=== PATIENT | male | born 1975 | race Caucasian/White ===

== ENCOUNTER 2021-03-27 14:59 | Inpatient (IN) | payer OTHER ==
[~2021-03-27] VITALS: Ht 185.4 cm; Wt 89.4 kg
[~2021-03-27 14:59] MED LIST: NOHOMEMEDICATIONS; PEPCID40 MG PO
[2021-03-27 16:55] LABS: ABSOLUTE NEUTROPHILS 3.5 thou/uL (1.4-8.2); BASOPHILS 2.1 % (0.0-2.0); EOSINOPHILS 0.2 % (0.0-3.0); HEMATOCRIT 43.8 % (42.0-52.0); HEMOGLOBIN 14.3 gm/dL (14.0-18.0); LYMPHOCYTES 17.8 % (24.0-44.0); MCH 27.8 pg (26.0-34.0); MCHC 32.7 g/dL (28.0-37.0); MONOCYTES 6.6 % (1.0-8.0); POLYS 73.3 % (36.0-66.0); RBC 5.15 mil/uL (4.50-6.00); WBC 4.8 thou/uL (4.0-11.0)
[2021-03-27 17:00] LABS: CALCIUM 7.9 mg/dL (8.5-10.1); CREATININE 0.7 mg/dL (0.7-1.3); POTASSIUM 3.6 mmol/L (3.5-5.1)
[2021-03-27 17:06] LABS: TOTAL BILIRUBIN 1.3 mg/dL (0.2-1.0); TOTAL PROTEIN 7.5 g/dL (6.4-8.2)
[2021-03-27 17:23] VITALS: BP 147/107
[2021-03-27 17:36] LABS: ANISOCYTOSIS 1+; PLATELET COUNT 66 thou/uL (150-400)
--- NOTE | 2021-03-27 18:18 | NUR ---
Pt direct admit. Pt a&ox4. C/o and pain. Prn pain medication adminsitered. IV placed. Pt states he drinks regularly at home (4-5 shots of vodka per day). Umbilical hernia painful to touch. Family at bedside. Admission completed. Call light within reach. Will continue to monitor.
[2021-03-27 20:08] VITALS: BP 153/106
[2021-03-27 20:26] LABS: ALBUMIN 2.6 g/dL (3.4-5.0)
--- NOTE | 2021-03-28 03:18 | NUR ---
ASSUMED PT CARE AT 1900.PT OU OF THE UNIT FOR A CT SCAN.AGRICULTURAL RESEARCHER ON DUTY SAW PT AT ,ORDERS NOTED AND CARRIED OUT SEE AUG.PT C/O PAIN,N/V MOST OF THE SHIFT.PT HAS HAD THREE EPISODES OF N/V.PT STATED THAT HE HAD A NOSE BLEED WITH THE LAST EMESIS.PT CONT ON IVF CURT WELL.NPO SINCE SHIFT STARTED.ABD DISTENDED AND PAINFUL TO TOUCH.UP ADLIB IN THE ROOM WITH A STEADY GAIT.PT ABLE TO MAKE HIS NEEDS KNOWN.CALL LIGHT WITHIN REACH.
[2021-03-28 03:44] VITALS: BP 171/116
[2021-03-28 07:00] LABS: HEMATOCRIT 42.3 % (42.0-52.0); HEMOGLOBIN 13.7 gm/dL (14.0-18.0); MCH 27.9 pg (26.0-34.0); MCHC 32.5 g/dL (28.0-37.0); RBC 4.92 mil/uL (4.50-6.00); RDW 18.6 % (10.5-14.5); WBC 5.1 thou/uL (4.0-11.0)
--- NOTE | 2021-03-28 07:20 | EKG ---
[address] [address] ELECTROCARDIOGRAM REPORT Name: COLTON YATES Room #: 448- ADM IN M.R.#: [id number] Admission: 03/27/21 Attend Phys: Everardo Lee MD Discharge: Date of : 71 Report #: [id number] [facility] Test Date: 2021-03-27 Test Time: 18:01:04 Pat Name: COLTON YATES Department: Room: [facility] Gender: M Band Top Maker: [id number] : 1975 Requested By: Everardo Lee Order Number: [id number] MD: Daron Ramos Measurements Intervals [place] Rate: 114 P: 39 [place]: 164 QRS: 73 QRSD: 93 T: 29 QT: 348 QTc: 480 Interpretive Statements Sinus tachycardia Baseline wander in lead(s) V1 Compared to ECG 12/14/2011 20:17:50 Sinus rhythm no longer present Electronically Signed On 03-28-2021 7:20:31 CDT by Daron Ramos [email or web address] <ELECTRONICALLY SIGNED> By: Daron Ramos MD, [facility] 03/28/21 0720 00 00 Daron Ramos MD, FAC /EPI
[2021-03-28 07:21] LABS: ALBUMIN 2.8 g/dL (3.4-5.0); CREATININE 0.8 mg/dL (0.7-1.3); MAGNESIUM 1.5 mg/dL (1.8-2.4); PHOSPHORUS 3.2 mg/dL (2.5-4.9)
[2021-03-28 08:09] VITALS: BP 147/105
[2021-03-28 09:13] LABS: INR 1.14; PROTIME 12.4 Seconds (10.5-12.1)
[2021-03-28 13:01] LABS: CLARITY CLEAR; COLOR YELLOW; SOURCE ABDOMINAL; TOTAL VOLUME 60 mL
[2021-03-28 13:11] LABS: BF NUCLEATED CELLS 202 /mm3; BF RBC 510 /mm3
[2021-03-28 15:33] LABS: % SATURATION 15 % (20-39); IRON 42 ug/dL (65-175); TIBC 272 ug/dL (250-450)
[2021-03-28 15:42] LABS: BF MACROPHAGE 34 %; BF NEUTROPHILS 5 %
--- NOTE | 2021-03-28 16:15 | NUR ---
PT ASSESSED AT START OF SHIFT. NPO FOR PARACENTESIS AT 1015. TAKING SM AMTS LIQUIDS POST PROCEDURE. ABD SORE AFTERWARD. IV PAIN MED HELPING. IV FLUIDS INFUSING. DR. MARINO IN THIS AM. DR. DIAZ IN THIS AFTERNOON. ORDER TO START PT ON ALCOLHOL PROTOCOL TREMORS NOTED TO BE INCREASING. TRANSFERRED TO CCU AT THIS TIME PER W/C. REPORT GIVEN TO RECEIVING RN.
[2021-03-28 16:50] VITALS: BP 148/100
--- NOTE | 2021-03-28 19:33 | NUR ---
TRANSFER NOTE: pt received to rm 214 from 4S. A&O x4, on RA. Denies any chest pain. CIWA protocol in place & in chart. Pt oriented to floor rules. ST on the montior. Denies any current needs.
[2021-03-28 19:49] VITALS: BP 145/95
[2021-03-28 23:22] VITALS: BP 152/86
--- NOTE | 2021-03-29 00:48 | NUR ---
UPON SHIFT REPORT, PT AT BEDSIDE. UPON SHIFT ASSESSMENT, PT AOX4, REPORTING 4/10 ANXIETY. PT REPORTS 7/10 CHRONIC BACK AND ACUTE ABDOMINAL PAIN, ALONG WITH 2/10 HEADACHE PAIN. ABDOMEN ROUND, FIRM, AND TENDER WITH TOUCH, NO DRAINAGE NOTED TO PARACENTESIS SITE. PT RECEIVING PRN IV DILAUDID Q2HR. PT REPORTS SOB WHILE AT REST. PT REPORTS INCREASED OCCURENCE OF SOB WHEN ANXIOUS AND IN PAIN, NO DESATURATIONS NOTED. 2L O2 VIA NC APPLIED, PT REPORTS RELIEF. ALCOHOL WITHDRAWAL ASSESSMENT SCORED AT 11. PT RECEIVING PRN IV ATIVAN Q2HR/Q4HR WITH PRN PO ATIVAN Q2HR/Q4HR AVAILABLE. PT TOLERATING PO INTAKE OF FLUIDS AND 2GM SODIUM DIET WITHOUT ISSUE, PT REPORTS NAUSEA WITHOUT EMESIS. PT RECEIVING PRN IV ZOFRAN Q4HR. PT AMBULATING INDEPENDENTLY IN ROOM AND TO BATHROOM, VOIDING PER URINAL DUE TO STRICT I/O MONITORING, DARK TARYN URINE NOTED. PT RESTING IN BED THROUGHOUT SHIFT, FREQUENT REPOSITIONING ENCOURAGED, PT NOTED TO SHIFT INDEPENDENTLY. PT ENCOURAGED TO NOTIFY STAFF FOR ALL NEEDS, CALL LIGHT WITHIN REACH, BED ALARM ON, BED LOCKED IN LOWEST POSITION, FREQUENT MONITORING WILL CONTINUE.
[2021-03-29 05:22] VITALS: BP 146/79
[2021-03-29 06:06] LABS: IgG 1980 mg/dL (603-1613)
--- NOTE | 2021-03-29 06:40 | NUR ---
SLEPT PART OF SHIFT. ATIVAN GIVEN PER CIWA SCORES. PAIN MEDICATIONS PRN. WORKING ON GOALS AND PLAN OF CARE FOR NOC. UP AD NEIL IN ROOM. CONTINUE TO BAHMAN GUTIERREZ.
[2021-03-29 07:30] VITALS: BP 120/78
--- NOTE | 2021-03-29 09:06 | NUR ---
Assumed care of pt this AM. Pt oriented x4, sleepy. On RA, denies any chest pain. SR/ ST on the monitor. CIWA protocol in place, assessments as charted. Pt c/o abd & back pain, PRN pain medication given. Will continue to monitor pts status.
[2021-03-29 16:00] VITALS: BP 145/106
[2021-03-29 17:06] LABS: CERULOPLASMIN 21.7 mg/dL (16.0-31.0)
[2021-03-29 19:26] VITALS: BP 148/97
[2021-03-29 23:39] VITALS: BP 144/104
[2021-03-30 03:47] LABS: HEMATOCRIT 40.8 % (42.0-52.0); HEMOGLOBIN 13.2 gm/dL (14.0-18.0); MCH 27.7 pg (26.0-34.0); MCHC 32.4 g/dL (28.0-37.0); MCV 85.6 fL (80.0-100.0); RBC 4.77 mil/uL (4.50-6.00); RDW 18.4 % (10.5-14.5); WBC 4.2 thou/uL (4.0-11.0)
[2021-03-30 03:56] LABS: CALCIUM 8.3 mg/dL (8.5-10.1); CREATININE 0.8 mg/dL (0.7-1.3); POTASSIUM 3.6 mmol/L (3.5-5.1)
[2021-03-30 04:45] VITALS: BP 137/99
[2021-03-30 06:06] LABS: HAV IgM AB (ANTI-HAV IgM) Negative (Negative); HEPATITIS B SURFACE AG Negative (Negative); HEPATITIS C VIRUS AB <0.1 (0.0-0.9)
[2021-03-30 07:20] VITALS: BP 146/100
--- NOTE | 2021-03-30 07:35 | NUR ---
SLEPT PART OF SHIFT. UP AD NEIL IN ROOM. ST 120-130 WHEN UP IN ROOM. PAIN MEDICATIONS GIVEN NEEDED. ATIVAN PER CIWA SCORE. CONTINUE TO ASSES.
[2021-03-30 11:20] VITALS: BP 135/94
[2021-03-30 13:06] LABS: ANA INTERPRETATION Positive (Negative)
[2021-03-30 15:25] VITALS: BP 137/99
[2021-03-30 19:06] VITALS: BP 130/83
--- NOTE | 2021-03-30 19:55 | NUR ---
PT IS AXOX4, SOME ANXIETY. VSS, AFEBRILE, ST ON THE MONITOR. C/O ABDOMINAL PAIN AND ANXIETY, SOME NAUSEA THIS PM. RX PROVIDED WITH SOME RELIEG. PT HAS BEEN UP AD NEIL TO TOILET AND PROMOTE ACTIVITY. C/O SOME DIZZINESS THIS PM. EDUCATED PT ON CALLING OUT PRIOR TO GETTING UP. PT COMMUNICATED UNDERSTANDING. DR OSMAN CONSULTED, DR MARINO CONSULTED. POC IS TO CONTINUE TO DIURESE PT WITH POSS D/C IN AM. FALL PRECAUTIONS IN PLACE. NO CONCERNS AT THIS TIME.
[2021-03-31 03:58] VITALS: BP 108/68
[2021-03-31 04:06] LABS: BODY FLUID ALBUMIN 1.7 g/dL (Not Estab.); BODY FLUID AMYLASE 38 U/L (()); BODY FLUID GLUCOSE 96 mg/dL (()); BODY FLUID LDH 74 IU/L (()); BODY FLUID PROTEIN 3.5 g/dL (())
--- NOTE | 2021-03-31 05:00 | NUR ---
UP AD NEIL IN [place]ILL[place] AND TO BATHROOM NEEDED WITH TELEMETRY SHOWING ST 130'S. RECOVERS QUICKLY AT REST. STATES LESS PAIN THIS SHIFT. HOPES TO BE DISCHARGED TODAY. WORKING ON GOALS AND PLAN OF CARE FOR NOC. CONTINUE TO ASSES.
[2021-03-31 07:15] VITALS: BP 130/89
[2021-03-31 11:30] VITALS: BP 128/96
--- NOTE | 2021-03-31 12:36 | NUR ---
PT IS AXOX4, PLEASANT; HAS NOT C/O PAIN, NAUSEA; ANTICIPATING GOING HOME; VSS, AFEBRILE, SR/ST ON THE MONITOR. PT HAS BEEN UP AD NEIL IN THE ROOM, AWAITING FOR D/C ORDERS. DR DIAZ CONSULTED, DR MARINO CONSULTED. WILL FOLLOW UP WITH MD FOR POC FOR D/C
[2021-03-31 15:25] VITALS: BP 123/97
[2021-03-31] MEDS ORDERED: ALDACTONE50 MG PO (16:06)
[2021-03-31] MEDS ORDERED: LASIX 20 MG TAB20 MG PO (16:07)
[2021-03-31] MEDS ORDERED: PEPCID20 MG PO (16:08)
[2021-03-31 16:28] VITALS: BP 123/97
[2021-04-02 13:37] LABS: SOURCE ABDOMINAL
== END 2021-03-31 17:15 | disposition home or self-care (01) | DRG 432 ==
LOC: 4S 14:59 → 2N 16:45
PROVIDERS: Hospitalist; Nurse Practitioner; Nurse Practitioner Family; ADMIT Surgery; ATTEND Surgery
PROC: 0W9G3ZZ Drainage of Peritoneal Cavity, Percutaneous Approach (ICD-10-PCS; principal; 2021-03-28)
DX: K70.31 Alcoholic cirrhosis of liver with ascites (principal); E43 Unspecified severe protein-calorie malnutrition; K76.6 Portal hypertension; F10.139 Alcohol abuse with withdrawal, unspecified; K70.11 Alcoholic hepatitis with ascites; K42.9 Umbilical hernia without obstruction or gangrene; I16.0 Hypertensive urgency; Z20.822 Contact with and (suspected) exposure to COVID-19; Z79.899 Other long term (current) drug therapy; Z88.0 Allergy status to penicillin; F17.210 Nicotine dependence, cigarettes, uncomplicated; Z71.6 Tobacco abuse counseling; D69.6 Thrombocytopenia, unspecified; G89.29 Other chronic pain; Z71.41 Alcohol abuse counseling and surveillance of alcoholic; M19.90 Unspecified osteoarthritis, unspecified site
CPT/HCPCS: 10081; 10100